=== PATIENT | male | born 1940 | race Caucasian/White ===

== ENCOUNTER → 2024-06-28 14:37 | Outpatient (REF) | payer MEDICARE, OTHER, SELFPAY | LOC: EMG 14:37 | PROVIDERS: ATTENDING PHYSICIAN Student in an Organized Health Care Education/Training Program; FAMILY PHYSICIAN Nurse Practitioner Adult Health | DX: R26.9 Unspecified abnormalities of gait and mobility (principal); R20.0 Anesthesia of skin | CPT/HCPCS: 95886; 95911 ==

== ENCOUNTER → 2024-07-05 17:11 | Outpatient (REF) | payer MEDICARE, OTHER, SELFPAY | LOC: MRI 17:11 | PROVIDERS: ATTENDING PHYSICIAN Student in an Organized Health Care Education/Training Program; FAMILY PHYSICIAN Nurse Practitioner Adult Health | DX: R26.9 Unspecified abnormalities of gait and mobility (principal) | CPT/HCPCS: 72148 ==

== ENCOUNTER → 2024-09-11 14:29 | Outpatient (REF) | payer MEDICARE, OTHER, SELFPAY | LOC: RAD 14:29 | PROVIDERS: ATTENDING PHYSICIAN Surgery Vascular Surgery; FAMILY PHYSICIAN Pediatrics Pediatric Rheumatology | DX: I73.9 Peripheral vascular disease, unspecified (principal); I65.21 Occlusion and stenosis of right carotid artery | CPT/HCPCS: 93880; 93922 ==

== ENCOUNTER → 2025-03-28 07:48 | Outpatient (REF) | payer MEDICARE, OTHER, SELFPAY | LOC: RAD 07:48 | PROVIDERS: ATTENDING PHYSICIAN Surgery Vascular Surgery; FAMILY PHYSICIAN Nurse Practitioner Family | DX: I65.23 Occlusion and stenosis of bilateral carotid arteries (principal) | CPT/HCPCS: 93880 ==